=== PATIENT | female | born 1985 | race Caucasian/White ===

== ENCOUNTER 2019-04-21 19:49 | Emergency (ER) | payer MEDICAID, OTHER ==
[2019-04-21 20:04] VITALS: BP 138/73
--- NOTE | 2019-04-21 21:22 | ED Physician Documentation ---
History of Present Illness - Stated complaint Stated Complaint: PAIN BEHIND LEFT EYE - Chief complaint Chief Complaint: Heent - History obtained from History obtained from: Patient - History of Present Illness Timing: How many days ago (2) Pain level max: 3 Pain level now: 3 - Additonal information Additional information: 34-year-old female presents to the emergency department stating that she has had discomfort on her left eye for the past 2 to 3 days. Noticed things were darker in the eye today. Nothing makes it better or worse. Does not wear contacts. No foreign objects. States that there was some crusting to the eye this morning. No upper respiratory infections. Nothing makes it better or worse. Review of Systems Constitutional: denies: Fever, Chills Ears: denies: Ear pain Nose: denies: Rhinorrhea / runny nose, Congestion Respiratory: denies: Cough GI: denies: Nausea, Vomiting, Diarrhea Skin: denies: Rash Musculoskeletal: denies: Neck pain, Back pain Neurologic: denies: Focal weakness, Numbness, Confused, Headache PD PAST MEDICAL HISTORY - Past Medical History Cardiovascular: None Respiratory: None Endocrine/Autoimmune: None GI: None DIRECTOR OF ACCREDITATION: None : None Musculoskeletal: None Derm: None - Present Medications Home Medications: Ambulatory Orders Medication Instructions Recorded Confirmed Bcp 04/21/19 Polymyxin B/Trimeth Ophth Drop 1 drops LEFTEYE Q3H 7 Days #1 04/21/19 [Polytrim Ophth Drops] bottle - Allergies Allergies/Adverse Reactions: Allergies Allergy/AdvReac Type Severity Reaction Status Date / Time No Known Drug Allergies Allergy Verified 04/21/19 19:57 - Social History Does the pt smoke?: No Smoking Status: Never smoker PD ED PE NORMAL - Vitals Vital signs reviewed: Yes - General General: Alert and oriented X 3, No acute distress - HEENT HEENT: Moist mucous membranes, Other (Normal right eye. Left eye normal lid. Mild crusting. Mild conjunctival injection with clear tearing. No papilledema. Normal funduscopic exam. Intraocular pressures are normal bilaterally. OD is 17. OS is 18. No fluorescein uptake) - Neck Neck: Supple, no meningeal sign - Cardiac Cardiac: RRR - Respiratory Respiratory: No respiratory distress, Clear bilaterally - Derm Derm: Warm and dry - Neuro Neuro: Alert and oriented X 3 Results - Vitals Vitals: Oxygen O2 Source Room air PD MEDICAL DECISION MAKING - ED course Complexity details: considered differential, d/w patient ED course: Unclear etiology of symptoms. Possible conjunctivitis? Will place on ophthalmic antibiotics and follow-up closely with ophthalmology. No elevated pressure. No papilledema. Patient counseled regarding signs and symptoms for which I believe and urgent re-evaluation would be necessary. Patient with good understanding of and agreement to plan and is comfortable going home at this time This document was made in part using voice recognition software. While efforts are made to proofread this document, sound alike and grammatical errors may occur. Departure - Departure Disposition: 01 Home, Self Care Clinical Impression: Conjunctivitis Qualifiers: Conjunctivitis type: acute Acute conjunctivitis type: unspecified Laterality: left Qualified Code(s): H10.32 - Unspecified acute conjunctivitis, left eye Condition: Good Instructions: ED Conjunctivitis Nonspecific Follow-Up: Pavel Jacobson MD [Provider Admit Priv/Credential] - Within 3 Days Prescriptions: Polymyxin B/Trimeth Ophth Drop [Polytrim Ophth Drops] 1 drops LEFTEYE Q3H 7 Days #1 bottle Comments: Use the drops as prescribed. Return if you worsen. Follow-up with ophthalmology in the next 1 to 2 days. Discharge Date/Time: 04/21/19 21:31
== END 2019-04-21 21:31 | disposition home or self-care (01) ==
LOC: ED 19:49
DX: H10.32 Unspecified acute conjunctivitis, left eye (principal)
CPT/HCPCS: 99282; 99283